=== PATIENT | female | born 1935 | race Two or more races ===

== ENCOUNTER 2017-06-08 15:32 | Inpatient (IN) | payer MEDICARE, OTHER ==
[~2017-06-08] VITALS: Ht 152.4 cm; Wt 54.8 kg
[2017-06-08 16:13] LABS: CONDITION Y
[2017-06-08 16:16] LABS: Basophils # (auto) 0 uL; Basophils % (auto) 0.5 % (0.0-2.0); Eosinophils # (auto) 0.2 uL; Eosinophils % (auto) 1.6 % (0.0-7.0); Hematocrit 40.1 % (36.0-46.0); Hemoglobin 13.4 g/dL (12.2-16.2); Lymphocytes # (auto) 3.6 uL; Lymphocytes % (auto) 33.9 % (10.0-50.0); Mean Corpuscular Hemoglobin 29.4 pg (28.0-32.0); Mean Corpuscular Hgb Conc. 33.5 g/dL (32.0-36.0); Mean Corpuscular Volume 87.9 fL (80.0-100.0); Monocytes # (auto) 1.1 uL; Neutrophils # (auto) 5.8 uL; Platelet Count (auto) 191 10^3/uL (140-450); Red Cell Distribution Width 14.6 % (11.6-16.0); White Blood Cell 10.7 10^3/uL (4.4-10.8)
[2017-06-08 16:37] LABS: Albumin 3.1 g/dL (3.4-5.0); BUN/Creatinine Ratio 12.6; Calcium 8.8 mg/dL (8.5-10.1); Potassium 3.8 mmol/L (3.5-5.1)
[2017-06-08 16:39] LABS: Bilirubin, Total 0.4 mg/dL (0.2-1.0); Total Protein 7.1 g/dL (6.4-8.2)
[2017-06-08] MEDS ORDERED: InsuLIN REG 1unit/0.01ml Soln (100units/ml) SC ONE (18:00)
[2017-06-08] MEDS ORDERED: cloNIDine HCL 0.1 MG TAB PO ONE (18:00)
[2017-06-08] MEDS ORDERED: LACTULOSE 20Gm/30ML SOLN PO PRN (18:15)
[2017-06-08] MEDS ORDERED: ACETAMINOPHEN 500 MG TAB PO PRN (18:15)
[2017-06-08] MEDS ORDERED: NITROGLYCERIN 0.4 MG SL TAB SL PRN (18:15)
[2017-06-08] MEDS ORDERED: LORazepam 0.5 MG TAB PO PRN (18:15)
[2017-06-08] MEDS ORDERED: MORPHINE SULF INJ 2 MG/ML SYRINGE 1ML IV PRN (18:15)
[2017-06-08] MEDS ORDERED: PROMETHAZINE HCL 25 MG/ML 1ML IV PRN (18:15)
[2017-06-08] MEDS ORDERED: MORPHINE SULFATE 4 MG/ML SYRG IV PRN (18:15)
[2017-06-08] MEDS ORDERED: DEXTROSE (50%) 50ML SYRG IV PRN (18:15)
[2017-06-08] MEDS ORDERED: TEMAZEPAM 15 MG CAP PO PRN (18:15)
[2017-06-08] MEDS: SODIUM CHLORIDE 0.9% 1,000 ML IV SCH (18:28)
[2017-06-08] MEDS ORDERED: ASPirin 81 mg TAB PO ONE (18:30)
[2017-06-08 19:02] LABS: INR 0.98 (0.9-1.15); Partial Thromboplastin Time 26.8 sec (22.64-33.71); Prothrombin Time 10.7 sec (9.37-12.3)
[2017-06-08] MEDS ORDERED: LABETALOL HCL 5 MG/ML ML 20ML VIAL IV ONE (19:45)
[2017-06-08] MEDS: InsuLIN REG 1unit/0.01ml Soln (100units/ml) SC SCH (20:01)
[2017-06-08] MEDS: ENOXAPARIN SOD 40 MG/0.4 ML SYRINGE SC SCH (20:02)
[2017-06-08] MEDS: ACCU-CHEK COMFORT CURVE STRIP VI SCH (20:02)
[2017-06-08 21:40] VITALS: BP 127/68
[2017-06-08 22:00] VITALS: BP 127/68
[2017-06-08] MEDS ORDERED: ATORVASTATIN 20 MG TAB PO SCH (22:00)
[2017-06-09] MEDS: ACCU-CHEK COMFORT CURVE STRIP VI SCH ×6 (00:39→21:23)
[2017-06-09] MEDS: InsuLIN REG 1unit/0.01ml Soln (100units/ml) SC SCH ×6 (00:43→21:23)
[2017-06-09 05:00] VITALS: BP 146/65
[2017-06-09] MEDS: SODIUM CHLORIDE 0.9% 1,000 ML IV SCH ×2 (05:57→20:00)
[2017-06-09 08:00] VITALS: BP 152/72
[2017-06-09 09:00] VITALS: BP 152/72
[2017-06-09] MEDS: HYDROcodone-ACET 5/325MG TAB PO PRN ×2 (09:10→15:51)
[2017-06-09] MEDS: ASPirin 81 mg TAB PO SCH (09:11)
[2017-06-09 10:00] LABS: Urine Bilirubin Negative (Negative); Urine Blood Negative /uL (Negative); Urine Color Yellow (Yellow); Urine Ketone Negative (Negative); Urine Mucus FEW (None Seen); Urine Nitrite Negative (Negative); Urine RBC 2 /hpf (0 - 4); Urine Squamous Epithelial Cell FEW /hpf (<5); Urine Urobilinogen Normal (Negative); Urine pH 5.5 (5.0-8.0)
[2017-06-09 10:01] LABS: Urine Glucose 4+ mg/dL (Normal)
[2017-06-09 12:00] VITALS: BP 179/88
[2017-06-09] MEDS: LABETALOL HCL 5 MG/ML ML 20ML VIAL IV PRN ×3 (12:21→18:06)
[2017-06-09] MEDS ORDERED: HYDROcodone-ACET 5/325MG TAB PO PRN (14:45)
[2017-06-09] MEDS ORDERED: MORPHINE SULFATE 4 MG/ML SYRG IV PRN (14:45)
[2017-06-09] MEDS ORDERED: DEXTROSE (50%) 50ML SYRG IV PRN (14:45)
[2017-06-09] MEDS ORDERED: CILOSTAZOL 100 MG TAB PO ONE (15:00)
[2017-06-09] MEDS ORDERED: AMLO10TA2 PO (17:04)
[2017-06-09] MEDS ORDERED: METF-372 PO (17:04)
[2017-06-09] MEDS ORDERED: RANO500T2 PO (17:04)
[2017-06-09] MEDS ORDERED: ATOR10TA52 PO (17:04)
[2017-06-09] MEDS ORDERED: CLOP75TA28 PO (17:04)
[2017-06-09] MEDS ORDERED: ISOS30TA4 PO (17:04)
[2017-06-09] MEDS ORDERED: METO25TA5 PO (17:04)
[2017-06-09] MEDS ORDERED: ASPI-231 PO (17:04)
[2017-06-09 17:06] VITALS: BP 176/74
[2017-06-09] MEDS: glipiZIDE 5 MG TAB PO SCH (17:21)
[2017-06-09] MEDS: ENOXAPARIN SOD 40 MG/0.4 ML SYRINGE SC SCH (20:00)
[2017-06-09] MEDS: cloNIDine HCL 0.1 MG TAB PO SCH (20:50)
[2017-06-09] MEDS: ATORVASTATIN 20 MG TAB PO SCH (20:51)
[2017-06-09] MEDS: CILOSTAZOL 100 MG TAB PO SCH (20:51)
[2017-06-09 22:05] VITALS: BP_SYST 125; BP_SYST 128; BP_DIAS 61; BP_DIAS 80
[2017-06-10 05:30] VITALS: BP 113/54
[2017-06-10] MEDS: ACCU-CHEK COMFORT CURVE STRIP VI SCH ×4 (05:58→21:34)
[2017-06-10] MEDS: glipiZIDE 5 MG TAB PO SCH ×2 (05:58→17:44)
[2017-06-10] MEDS: InsuLIN REG 1unit/0.01ml Soln (100units/ml) SC SCH ×4 (05:58→21:34)
[2017-06-10] MEDS: SODIUM CHLORIDE 0.9% 1,000 ML IV SCH (07:24)
[2017-06-10 07:35] LABS: Potassium 3.7 mmol/L (3.5-5.1)
[2017-06-10 07:50] LABS: BUN/Creatinine Ratio 21.2; Calcium 7.8 mg/dL (8.5-10.1)
[2017-06-10 08:00] VITALS: BP 110/52
[2017-06-10 09:07] VITALS: BP 110/52
[2017-06-10] MEDS: CILOSTAZOL 100 MG TAB PO SCH ×2 (09:55→21:34)
[2017-06-10] MEDS: ASPirin 81 mg TAB PO SCH (09:55)
[2017-06-10] MEDS: cloNIDine HCL 0.1 MG TAB PO SCH (09:56)
[2017-06-10] MEDS ORDERED: METOPROLOL TARTRATE 25 MG TAB PO ONE (10:45)
[2017-06-10] MEDS ORDERED: amLODIPine BESYLATE 5 MG TAB PO ONE (10:45)
[2017-06-10] MEDS ORDERED: CLOPIDOGREL BISULFATE 75 MG TAB PO ONE (10:45)
[2017-06-10] MEDS ORDERED: ISOSORBIDE MONONITRATE 60 MG TAB PO ONE (10:45)
[2017-06-10 13:00] VITALS: BP 137/70
[2017-06-10 17:26] VITALS: BP 117/53
[2017-06-10] MEDS: METOPROLOL TARTRATE 25 MG TAB PO SCH (21:34)
[2017-06-10] MEDS: ENOXAPARIN SOD 40 MG/0.4 ML SYRINGE SC SCH (21:34)
[2017-06-10] MEDS: ATORVASTATIN 20 MG TAB PO SCH (21:34)
[2017-06-10 22:00] VITALS: BP 125/51
[2017-06-11 05:00] VITALS: BP 128/65
[2017-06-11] MEDS: InsuLIN REG 1unit/0.01ml Soln (100units/ml) SC SCH ×4 (05:43→22:00)
[2017-06-11] MEDS: ACCU-CHEK COMFORT CURVE STRIP VI SCH ×4 (05:44→22:00)
[2017-06-11] MEDS: glipiZIDE 5 MG TAB PO SCH ×2 (06:18→18:46)
[2017-06-11] MEDS: CILOSTAZOL 100 MG TAB PO SCH (08:39)
[2017-06-11] MEDS: METOPROLOL TARTRATE 25 MG TAB PO SCH ×2 (08:40→21:59)
[2017-06-11] MEDS: ASPirin 81 mg TAB PO SCH (08:40)
[2017-06-11] MEDS: CLOPIDOGREL BISULFATE 75 MG TAB PO SCH (08:40)
[2017-06-11] MEDS: amLODIPine BESYLATE 5 MG TAB PO SCH (08:41)
[2017-06-11] MEDS: ISOSORBIDE MONONITRATE 60 MG TAB PO SCH (08:41)
[2017-06-11 09:00] VITALS: BP 143/74
[2017-06-11 13:00] VITALS: BP 143/68
[2017-06-11 17:00] VITALS: BP 123/60
[2017-06-11] MEDS: ENOXAPARIN SOD 40 MG/0.4 ML SYRINGE SC SCH (20:00)
[2017-06-11 21:59] VITALS: BP 155/76
[2017-06-11] MEDS: ATORVASTATIN 20 MG TAB PO SCH (21:59)
[2017-06-11] MEDS: SODIUM CHLORIDE 0.9% 1,000 ML IV SCH (22:56)
[2017-06-12 05:00] VITALS: BP 159/80
[2017-06-12] MEDS: LABETALOL HCL 5 MG/ML ML 20ML VIAL IV PRN (05:43)
[2017-06-12] MEDS: ACCU-CHEK COMFORT CURVE STRIP VI SCH ×4 (06:08→22:05)
[2017-06-12] MEDS: InsuLIN REG 1unit/0.01ml Soln (100units/ml) SC SCH ×4 (06:08→22:06)
[2017-06-12] MEDS: glipiZIDE 5 MG TAB PO SCH ×2 (06:08→18:00)
[2017-06-12 07:24] LABS: BUN/Creatinine Ratio 18.3; Calcium 8.1 mg/dL (8.5-10.1); Potassium 3.4 mmol/L (3.5-5.1)
[2017-06-12 09:00] VITALS: BP 131/61
[2017-06-12] MEDS: SODIUM CHLORIDE 0.9% 1,000 ML IV SCH ×2 (09:00→20:06)
[2017-06-12] MEDS ORDERED: LIDOCAINE 2%HCL (LOCAL ANESTH.) INJ 20ML MDV ONE (09:35)
[2017-06-12] MEDS ORDERED: ANGIOMAX 250 MG VIAL IV ONE (09:47)
[2017-06-12] MEDS ORDERED: MIDAZOLAM HCL 1MG/1ML-2 ML VIAL ONE (09:48)
[2017-06-12] MEDS ORDERED: fentaNYL CITRATE 100 MCG/2 ML VL ONE (09:48)
[2017-06-12] MEDS ORDERED: SODIUM CHL 0.9% 50 ML ONE (09:48)
[2017-06-12] MEDS: CLOPIDOGREL BISULFATE 75 MG TAB PO SCH (10:00)
[2017-06-12] MEDS: METOPROLOL TARTRATE 25 MG TAB PO SCH ×2 (10:00→22:00)
[2017-06-12] MEDS: ASPirin 81 mg TAB PO SCH (10:00)
[2017-06-12] MEDS ORDERED: CLOPIDOGREL 300 MG TAB ONE (10:57)
[2017-06-12] MEDS ORDERED: CLOPIDOGREL 300 MG TAB PO ONE (11:15)
[2017-06-12 13:00] VITALS: BP 140/54
[2017-06-12] MEDS: amLODIPine BESYLATE 5 MG TAB PO SCH (14:46)
[2017-06-12] MEDS: ISOSORBIDE MONONITRATE 60 MG TAB PO SCH (14:48)
[2017-06-12 17:00] VITALS: BP 99/48
[2017-06-12 20:00] VITALS: BP 104/51
[2017-06-12] MEDS: ENOXAPARIN SOD 40 MG/0.4 ML SYRINGE SC SCH (20:06)
[2017-06-12 21:32] VITALS: BP 104/51
[2017-06-12] MEDS: ATORVASTATIN 20 MG TAB PO SCH (22:06)
[2017-06-13] VITALS (7 sets, daily range): BP systolic 104–138; BP diastolic 50–65
[2017-06-13] MEDS: SODIUM CHLORIDE 0.9% 1,000 ML IV SCH (03:25)
[2017-06-13] MEDS: ACCU-CHEK COMFORT CURVE STRIP VI SCH ×4 (06:32→21:44)
[2017-06-13] MEDS: glipiZIDE 5 MG TAB PO SCH ×2 (06:32→18:22)
[2017-06-13] MEDS: InsuLIN REG 1unit/0.01ml Soln (100units/ml) SC SCH ×4 (06:32→21:45)
[2017-06-13] MEDS: amLODIPine BESYLATE 5 MG TAB PO SCH (10:00)
[2017-06-13] MEDS: ISOSORBIDE MONONITRATE 60 MG TAB PO SCH (10:00)
[2017-06-13] MEDS: CLOPIDOGREL BISULFATE 75 MG TAB PO SCH (10:02)
[2017-06-13] MEDS: METOPROLOL TARTRATE 25 MG TAB PO SCH ×2 (10:03→21:44)
[2017-06-13] MEDS: ASPirin 81 mg TAB PO SCH (10:03)
[2017-06-13] MEDS ORDERED: POTASSIUM CHL 20 Meq TABLET PO ONE (11:00)
[2017-06-13] MEDS: ENOXAPARIN SOD 40 MG/0.4 ML SYRINGE SC SCH (21:26)
[2017-06-13] MEDS: ATORVASTATIN 20 MG TAB PO SCH (21:44)
[2017-06-14] VITALS (16 sets, daily range): BP systolic 118–152; BP diastolic 5–72
[2017-06-14 05:49] LABS: Basophils # (auto) 0.1 uL; Basophils % (auto) 0.4 % (0.0-2.0); CONDITION Y; DEFINITIVE SEE PRINTOUT; Eosinophils # (auto) 0.2 uL; Eosinophils % (auto) 1.4 % (0.0-7.0); Hematocrit 22.3 % (36.0-46.0); Hemoglobin 7.5 g/dL (12.2-16.2); Lymphocytes # (auto) 4.1 uL; Lymphocytes % (auto) 29.3 % (10.0-50.0); Mean Corpuscular Hemoglobin 30.1 pg (28.0-32.0); Mean Corpuscular Hgb Conc. 33.5 g/dL (32.0-36.0); Mean Corpuscular Volume 89.6 fL (80.0-100.0); Mean Platelet Volume 9.6 fL (7.4-10.4); Monocytes % (auto) 14.7 % (0.0-12.0); Neutrophils # (auto) 7.6 uL; Neutrophils % (auto) 54.2 % (37.0-80.0); Platelet Count (auto) 170 10^3/uL (140-450); Red Cell Distribution Width 14.5 % (11.6-16.0); White Blood Cell 13.9 10^3/uL (4.4-10.8)
[2017-06-14 06:00] LABS: Calcium 7.2 mg/dL (8.5-10.1); Potassium 3.8 mmol/L (3.5-5.1)
[2017-06-14 06:03] LABS: BUN/Creatinine Ratio 26.2
[2017-06-14] MEDS: InsuLIN REG 1unit/0.01ml Soln (100units/ml) SC SCH ×4 (06:41→21:41)
[2017-06-14] MEDS: ACCU-CHEK COMFORT CURVE STRIP VI SCH ×4 (06:41→21:40)
[2017-06-14] MEDS: glipiZIDE 5 MG TAB PO SCH ×2 (06:41→18:34)
[2017-06-14 09:12] LABS: Hematocrit 22.5 % (36.0-46.0); Hemoglobin 7.6 g/dL (12.2-16.2)
[2017-06-14] MEDS: ASPirin 81 mg TAB PO SCH (10:31)
[2017-06-14] MEDS: ISOSORBIDE MONONITRATE 60 MG TAB PO SCH (10:31)
[2017-06-14] MEDS: METOPROLOL TARTRATE 25 MG TAB PO SCH ×2 (10:32→21:37)
[2017-06-14] MEDS: CLOPIDOGREL BISULFATE 75 MG TAB PO SCH (10:32)
[2017-06-14] MEDS: amLODIPine BESYLATE 5 MG TAB PO SCH (10:32)
[2017-06-14] MEDS: ATORVASTATIN 20 MG TAB PO SCH (21:37)
[2017-06-15 05:08] VITALS: BP 149/74
[2017-06-15 05:58] LABS: Basophils # (auto) 0 uL; Basophils % (auto) 0.4 % (0.0-2.0); CONDITION Y; Eosinophils # (auto) 0.2 uL; Eosinophils % (auto) 1.7 % (0.0-7.0); Hemoglobin 10.6 g/dL (12.2-16.2); Lymphocytes # (auto) 2.6 uL; Lymphocytes % (auto) 26.4 % (10.0-50.0); Mean Corpuscular Hemoglobin 30.2 pg (28.0-32.0); Mean Corpuscular Hgb Conc. 34.3 g/dL (32.0-36.0); Mean Corpuscular Volume 88.3 fL (80.0-100.0); Monocytes # (auto) 1.6 uL; Monocytes % (auto) 15.9 % (0.0-12.0); Neutrophils # (auto) 5.6 uL; Neutrophils % (auto) 55.6 % (37.0-80.0); Platelet Count (auto) 181 10^3/uL (140-450); Red Cell Distribution Width 14.7 % (11.6-16.0)
[2017-06-15] MEDS: InsuLIN REG 1unit/0.01ml Soln (100units/ml) SC SCH ×2 (06:32→11:30)
[2017-06-15] MEDS: ACCU-CHEK COMFORT CURVE STRIP VI SCH ×2 (06:32→11:30)
[2017-06-15] MEDS: glipiZIDE 5 MG TAB PO SCH (06:33)
[2017-06-15 09:00] VITALS: BP 145/80
[2017-06-15] MEDS ORDERED: GLIP-115 PO (09:44)
[2017-06-15] MEDS: ISOSORBIDE MONONITRATE 60 MG TAB PO SCH (10:00)
[2017-06-15] MEDS: METOPROLOL TARTRATE 25 MG TAB PO SCH (10:00)
[2017-06-15] MEDS: ASPirin 81 mg TAB PO SCH (10:00)
[2017-06-15] MEDS: CLOPIDOGREL BISULFATE 75 MG TAB PO SCH (10:00)
[2017-06-15] MEDS: amLODIPine BESYLATE 5 MG TAB PO SCH (10:00)
[2017-06-15 10:23] VITALS: BP 145/80
== END 2017-06-15 14:20 | disposition home health service (06) | DRG 271 ==
LOC: ER 15:37 → TELE 15:38 → TELE-EAST 21:20 → EAST 06-14 10:26
PROVIDERS: ADMIT Internal Medicine; ATTEND Internal Medicine
PROC: B41F1ZZ Fluoroscopy of Right Lower Extremity Arteries using Low Osmolar Contrast (ICD-10-PCS; principal; 2017-06-12)
PROC: B41G1ZZ Fluoroscopy of Left Lower Extremity Arteries using Low Osmolar Contrast (ICD-10-PCS; 2017-06-12)
PROC: 04CK3ZZ Extirpation of Matter from Right Femoral Artery, Percutaneous Approach (ICD-10-PCS; 2017-06-12)
PROC: 047K3Z1 Dilation of Right Femoral Artery using Drug-Coated Balloon, Percutaneous Approach (ICD-10-PCS; 2017-06-12)
PROC: 047M3Z1 Dilation of Right Popliteal Artery using Drug-Coated Balloon, Percutaneous Approach (ICD-10-PCS; 2017-06-12)
PROC: 047Q3ZZ Dilation of Left Anterior Tibial Artery, Percutaneous Approach (ICD-10-PCS; 2017-06-12)
PROC: 04CM3ZZ Extirpation of Matter from Right Popliteal Artery, Percutaneous Approach (ICD-10-PCS; 2017-06-12)
PROC: 04CP3ZZ Extirpation of Matter from Right Anterior Tibial Artery, Percutaneous Approach (ICD-10-PCS; 2017-06-12)
DX: E11.51 Type 2 diabetes mellitus with diabetic peripheral angiopathy without gangrene (principal); E11.22 Type 2 diabetes mellitus with diabetic chronic kidney disease; F03.90 Unspecified dementia, unspecified severity, without behavioral disturbance, psychotic disturbance, mood disturbance, and anxiety; E11.65 Type 2 diabetes mellitus with hyperglycemia; I12.9 Hypertensive chronic kidney disease with stage 1 through stage 4 chronic kidney disease, or unspecified chronic kidney disease; N18.3 Chronic kidney disease, stage 3 (moderate); W01.0XXA Fall on same level from slipping, tripping and stumbling without subsequent striking against object, initial encounter; I69.351 Hemiplegia and hemiparesis following cerebral infarction affecting right dominant side; S09.90XA Unspecified injury of head, initial encounter; D64.9 Anemia, unspecified; I67.2 Cerebral atherosclerosis; I16.0 Hypertensive urgency; I70.211 Atherosclerosis of native arteries of extremities with intermittent claudication, right leg; Y93.89 Activity, other specified; Y92.89 Other specified places as the place of occurrence of the external cause; Z82.49 Family history of ischemic heart disease and other diseases of the circulatory system
CPT/HCPCS: 34201; 34203; 36415; 37224; 37228; 70450; 71010; 80048; 80053; 80307; 81001; 82550; 82607; 82962; 83036; 84443; 85014; 85018; 85025; 85610; 85652; 85730; 86850; 86900; 86901; 86920; 96372; 96374; 97116; 97530; 99152; J1815; J2250

== ENCOUNTER 2020-03-04 00:22 | Inpatient (IN) | payer OTHER, MEDICAID ==
[~2020-03-04] VITALS: Ht 152.4 cm; Wt 40.8 kg
[~2020-03-04 00:22] MED LIST: AMLO10TA13 PO; ASPI-231 PO; ATOR10TA52 PO; BENA20TA14 PO; CARV6.2551 PO; CLOP75TA28 PO; GLIP5TAB12 PO; ISOS30TA4 PO; METO25TA5 PO; RANO500T2 PO
[2020-03-04] MEDS ORDERED: cloNIDine HCL 0.1 MG TAB PO ONE (00:30)
[2020-03-04] MEDS ORDERED: MORPHINE SULFATE 4 MG/ML SYR/VIAL IV ONE (00:30)
[2020-03-04] MEDS ORDERED: ONDANSETRON HCL 4 MG/2 ML VIAL IV ONE ×2 (00:30→01:45)
[2020-03-04] MEDS ORDERED: NITROGLYCERIN 0.4 MG SL TAB SL ONE ×3 (00:48→10:00)
[2020-03-04 00:50] LABS: Basophils # (auto) 0.1 10 ^3/uL (0-0.2); Basophils % (auto) 0.9 % (0.0-2.0); Eosinophils # (auto) 0.4 10 ^3/uL (0-0.8); Eosinophils % (auto) 3.7 % (0.0-7.0); Hematocrit 33.5 % (36.0-46.0); Hemoglobin 10.7 g/dL (12.2-16.2); Lymphocytes # (auto) 3.6 10 ^3/uL (0.4-5.4); Lymphocytes % (auto) 37.1 % (10.0-50.0); Mean Corpuscular Hemoglobin 28.2 pg (28.0-32.0); Mean Corpuscular Hgb Conc. 32.1 g/dL (32.0-36.0); Mean Corpuscular Volume 87.9 fL (80.0-100.0); Monocytes # (auto) 0.9 10 ^3/uL (0-1.3); Monocytes % (auto) 9.7 % (0.0-12.0); Neutrophils # (auto) 4.7 10 ^3/uL (1.6-8.6); Neutrophils % (auto) 48.6 % (37.0-80.0); Nucleated Red Blood Cells % 0.2 %; Platelet Count (auto) 199 10^3/uL (140-450); Red Blood Cells 3.81 10^6/uL (4.0-5.20); Red Cell Distribution Width 15.1 % (11.8-14.3); White Blood Cell 9.7 10^3/uL (4.4-10.8)
[2020-03-04 01:09] LABS: Albumin 2.8 g/dL (3.4-5.0); Calcium 8.2 mg/dL (8.5-10.1); Magnesium 2.1 mg/dL (1.6-2.6); Potassium 3.6 mmol/L (3.5-5.1)
[2020-03-04 01:11] LABS: INR 1.13 (0.9-1.15); Partial Thromboplastin Time 27.9 sec (23.64-32.05)
[2020-03-04 01:14] LABS: Bilirubin, Total 0.6 mg/dL (0.2-1.0); Total Protein 7.1 g/dL (6.4-8.2)
[2020-03-04] MEDS ORDERED: ACETAMINOPHEN 325 MG TAB PO PRN (04:45)
[2020-03-04] MEDS ORDERED: MORPHINE SULF INJ 2 MG/ML SYRINGE 1ML IV PRN (04:45)
[2020-03-04] MEDS ORDERED: ONDANSETRON HCL 4 MG/2 ML VIAL IV PRN (04:45)
[2020-03-04] MEDS ORDERED: DEXTROSE (50%) 50ML SYRG IV PRN (04:45)
[2020-03-04] MEDS ORDERED: NITROGLYCERIN 0.4 MG SL TAB SL PRN (04:45)
[2020-03-04] MEDS: SODIUM CHLORIDE 0.9% 1,000 ML IV SCH ×2 (05:32→18:03)
[2020-03-04 07:53] VITALS: BP 139/72
[2020-03-04] MEDS ORDERED: CARVEDILOL 3.125 MG TAB PO SCH (08:00)
[2020-03-04] MEDS: ACCU-CHEK COMFORT CURVE STRIP VI SCH ×3 (08:00→20:15)
[2020-03-04 09:17] VITALS: BP 139/72
[2020-03-04] MEDS: ATORVASTATIN 20 MG TAB PO SCH (09:20)
[2020-03-04] MEDS: DOCUSATE SOD 100 MG CAP PO SCH (09:21)
[2020-03-04] MEDS: CLOPIDOGREL BISULFATE 75 MG TAB PO SCH (09:21)
[2020-03-04] MEDS: amLODIPine BESYLATE 5 MG TAB PO SCH (09:21)
[2020-03-04] MEDS: ISOSORBIDE MONONITRATE ER 60 MG TAB PO SCH (09:22)
[2020-03-04] MEDS: ASPirin-EC 81 mg tab PO SCH (09:22)
[2020-03-04] MEDS: InsuLIN REG 1unit/0.01ml Soln (100units/ml) SC SCH ×3 (09:23→20:24)
[2020-03-04] MEDS: FUROSEMIDE 100 MG/10ML VIAL IV SCH (09:29)
[2020-03-04] MEDS ORDERED: hydrALAZINE HCL 20 MG/ML VL IV PRN (09:45)
[2020-03-04] MEDS ORDERED: BENAZEPRIL HCL 10 MG TAB PO SCH (10:00)
[2020-03-04] MEDS ORDERED: ASPirin 81 mg TAB PO SCH (10:00)
[2020-03-04] MEDS ORDERED: CLOPIDOGREL BISULFATE 75 MG TAB PO SCH (10:00)
[2020-03-04 12:50] VITALS: BP 132/66
[2020-03-04 16:32] VITALS: BP 90/51
[2020-03-04] MEDS: Glucerna Carbsteady SHAKE Vanilla 8oz PO SCH (18:00)
[2020-03-04] MEDS: METOPROLOL TARTRATE 25 MG TAB PO SCH (21:21)
[2020-03-04 22:00] VITALS: BP 117/51
[2020-03-04] MEDS ORDERED: ATORVASTATIN 20 MG TAB PO SCH (22:00)
[2020-03-05] MEDS: ACCU-CHEK COMFORT CURVE STRIP VI SCH ×6 (03:36→22:01)
[2020-03-05] MEDS: InsuLIN REG 1unit/0.01ml Soln (100units/ml) SC SCH ×6 (03:36→22:04)
[2020-03-05 05:00] VITALS: BP 116/56
[2020-03-05 05:18] LABS: Basophils # (auto) 0.1 10 ^3/uL (0-0.2); Eosinophils # (auto) 0.5 10 ^3/uL (0-0.8); Eosinophils % (auto) 5.8 % (0.0-7.0); Hematocrit 27.2 % (36.0-46.0); Hemoglobin 8.9 g/dL (12.2-16.2); Lymphocytes # (auto) 2.8 10 ^3/uL (0.4-5.4); Lymphocytes % (auto) 34.2 % (10.0-50.0); Mean Corpuscular Hemoglobin 28.7 pg (28.0-32.0); Mean Corpuscular Hgb Conc. 32.7 g/dL (32.0-36.0); Mean Corpuscular Volume 87.7 fL (80.0-100.0); Monocytes # (auto) 0.9 10 ^3/uL (0-1.3); Monocytes % (auto) 11.3 % (0.0-12.0); Neutrophils # (auto) 3.9 10 ^3/uL (1.6-8.6); Neutrophils % (auto) 47.7 % (37.0-80.0); Platelet Count (auto) 155 10^3/uL (140-450); White Blood Cell 8.1 10^3/uL (4.4-10.8)
[2020-03-05 05:38] LABS: Potassium 4.3 mmol/L (3.5-5.1)
[2020-03-05] MEDS: FUROSEMIDE 100 MG/10ML VIAL IV SCH ×2 (05:55→18:13)
[2020-03-05] MEDS: SODIUM CHLORIDE 0.9% 1,000 ML IV SCH ×2 (07:23→22:01)
[2020-03-05] MEDS: Glucerna Carbsteady SHAKE Vanilla 8oz PO SCH ×3 (08:00→18:12)
[2020-03-05 09:00] VITALS: BP 121/58
[2020-03-05] MEDS: METOPROLOL TARTRATE 25 MG TAB PO SCH ×2 (09:45→21:52)
[2020-03-05] MEDS: ASPirin-EC 81 mg tab PO SCH (09:46)
[2020-03-05] MEDS: amLODIPine BESYLATE 5 MG TAB PO SCH (09:46)
[2020-03-05] MEDS: DOCUSATE SOD 100 MG CAP PO SCH (09:46)
[2020-03-05] MEDS: ISOSORBIDE MONONITRATE ER 60 MG TAB PO SCH (09:46)
[2020-03-05] MEDS: ATORVASTATIN 20 MG TAB PO SCH (09:47)
[2020-03-05] MEDS: CLOPIDOGREL BISULFATE 75 MG TAB PO SCH (09:47)
[2020-03-05] MEDS ORDERED: DEXTROSE (50%) 50ML SYRG IV PRN (16:00)
[2020-03-05 17:00] VITALS: BP 115/61
[2020-03-05 22:00] VITALS: BP 107/46
[2020-03-06 04:53] VITALS: BP 130/61
[2020-03-06 05:48] LABS: Basophils # (auto) 0.1 10 ^3/uL (0-0.2); Basophils % (auto) 0.7 % (0.0-2.0); Eosinophils # (auto) 0.4 10 ^3/uL (0-0.8); Eosinophils % (auto) 4.4 % (0.0-7.0); Hematocrit 28.7 % (36.0-46.0); Hemoglobin 9.4 g/dL (12.2-16.2); Lymphocytes # (auto) 2.5 10 ^3/uL (0.4-5.4); Lymphocytes % (auto) 28.3 % (10.0-50.0); Mean Corpuscular Hgb Conc. 32.9 g/dL (32.0-36.0); Mean Corpuscular Volume 88.1 fL (80.0-100.0); Monocytes # (auto) 1.4 10 ^3/uL (0-1.3); Monocytes % (auto) 15.1 % (0.0-12.0); Neutrophils # (auto) 4.6 10 ^3/uL (1.6-8.6); Neutrophils % (auto) 51.5 % (37.0-80.0); Platelet Count (auto) 162 10^3/uL (140-450); Red Blood Cells 3.26 10^6/uL (4.0-5.20); Red Cell Distribution Width 15.1 % (11.8-14.3); White Blood Cell 8.9 10^3/uL (4.4-10.8)
[2020-03-06 06:04] LABS: Potassium 3.8 mmol/L (3.5-5.1)
[2020-03-06 06:08] LABS: BUN/Creatinine Ratio 21.4; Calcium 7.6 mg/dL (8.5-10.1)
[2020-03-06] MEDS: ACCU-CHEK COMFORT CURVE STRIP VI SCH ×4 (06:16→22:19)
[2020-03-06] MEDS: FUROSEMIDE 100 MG/10ML VIAL IV SCH ×2 (06:16→17:35)
[2020-03-06] MEDS: InsuLIN REG 1unit/0.01ml Soln (100units/ml) SC SCH ×4 (06:16→22:19)
[2020-03-06 08:00] VITALS: BP 137/65
[2020-03-06] MEDS ORDERED: ADENOSINE 35 MG in GIVE UN-DILUTED 0 ML IV STA (08:38)
[2020-03-06 09:48] VITALS: BP 159/76
[2020-03-06] MEDS: SODIUM CHLORIDE 0.9% 1,000 ML IV SCH ×2 (10:03→17:41)
[2020-03-06] MEDS: DOCUSATE SOD 100 MG CAP PO SCH (11:12)
[2020-03-06] MEDS: ASPirin-EC 81 mg tab PO SCH (11:12)
[2020-03-06] MEDS: ISOSORBIDE MONONITRATE ER 60 MG TAB PO SCH (11:13)
[2020-03-06] MEDS: ATORVASTATIN 20 MG TAB PO SCH (11:13)
[2020-03-06] MEDS: amLODIPine BESYLATE 5 MG TAB PO SCH (11:14)
[2020-03-06] MEDS: METOPROLOL TARTRATE 25 MG TAB PO SCH ×2 (11:14→22:18)
[2020-03-06] MEDS: CLOPIDOGREL BISULFATE 75 MG TAB PO SCH (11:15)
[2020-03-06] MEDS: Glucerna Carbsteady SHAKE Vanilla 8oz PO SCH ×3 (11:17→18:15)
[2020-03-06 12:00] VITALS: BP 107/66
[2020-03-06 16:59] VITALS: BP 101/57
[2020-03-06 22:00] VITALS: BP 125/54
[2020-03-07 05:00] VITALS: BP 122/67
[2020-03-07] MEDS: FUROSEMIDE 100 MG/10ML VIAL IV SCH ×2 (06:35→18:03)
[2020-03-07] MEDS: ACCU-CHEK COMFORT CURVE STRIP VI SCH ×4 (06:36→23:05)
[2020-03-07] MEDS: InsuLIN REG 1unit/0.01ml Soln (100units/ml) SC SCH ×4 (06:36→23:04)
[2020-03-07 08:08] LABS: Basophils # (auto) 0.1 10 ^3/uL (0-0.2); Basophils % (auto) 0.8 % (0.0-2.0); Eosinophils # (auto) 0.3 10 ^3/uL (0-0.8); Eosinophils % (auto) 3.4 % (0.0-7.0); Hematocrit 35.4 % (36.0-46.0); Hemoglobin 11.5 g/dL (12.2-16.2); Lymphocytes # (auto) 2.9 10 ^3/uL (0.4-5.4); Lymphocytes % (auto) 30.5 % (10.0-50.0); Mean Corpuscular Hemoglobin 28.8 pg (28.0-32.0); Mean Corpuscular Hgb Conc. 32.5 g/dL (32.0-36.0); Mean Corpuscular Volume 88.7 fL (80.0-100.0); Monocytes % (auto) 10.8 % (0.0-12.0); Neutrophils # (auto) 5.2 10 ^3/uL (1.6-8.6); Neutrophils % (auto) 54.5 % (37.0-80.0); Platelet Count (auto) 182 10^3/uL (140-450); Red Cell Distribution Width 15.2 % (11.8-14.3); White Blood Cell 9.6 10^3/uL (4.4-10.8)
[2020-03-07 09:00] VITALS: BP 142/52
[2020-03-07] MEDS: METOPROLOL TARTRATE 25 MG TAB PO SCH ×2 (09:32→23:03)
[2020-03-07] MEDS: amLODIPine BESYLATE 5 MG TAB PO SCH (09:32)
[2020-03-07] MEDS: ASPirin-EC 81 mg tab PO SCH (09:32)
[2020-03-07] MEDS: DOCUSATE SOD 100 MG CAP PO SCH (09:33)
[2020-03-07] MEDS: CLOPIDOGREL BISULFATE 75 MG TAB PO SCH (09:33)
[2020-03-07] MEDS: ISOSORBIDE MONONITRATE ER 60 MG TAB PO SCH (09:34)
[2020-03-07] MEDS: Glucerna Carbsteady SHAKE Vanilla 8oz PO SCH ×3 (09:35→18:03)
[2020-03-07] MEDS: SODIUM CHLORIDE 0.9% 1,000 ML IV SCH (12:43)
[2020-03-07 13:00] VITALS: BP 126/69
[2020-03-07 16:49] VITALS: BP 110/53
[2020-03-07 22:00] VITALS: BP 135/70
[2020-03-07] MEDS: ATORVASTATIN 20 MG TAB PO SCH (23:02)
[2020-03-07] MEDS: SODIUM CHLORIDE 0.9% 500 ML IV SCH (23:15)
[2020-03-08 05:00] VITALS: BP 112/58
[2020-03-08 05:33] LABS: Basophils # (auto) 0.1 10 ^3/uL (0-0.2); Basophils % (auto) 0.9 % (0.0-2.0); Eosinophils # (auto) 0.4 10 ^3/uL (0-0.8); Hematocrit 31.8 % (36.0-46.0); Hemoglobin 10.5 g/dL (12.2-16.2); Lymphocytes # (auto) 3.5 10 ^3/uL (0.4-5.4); Lymphocytes % (auto) 41.2 % (10.0-50.0); Mean Corpuscular Hemoglobin 28.6 pg (28.0-32.0); Mean Corpuscular Hgb Conc. 33.1 g/dL (32.0-36.0); Mean Corpuscular Volume 86.2 fL (80.0-100.0); Monocytes % (auto) 11.7 % (0.0-12.0); Neutrophils # (auto) 3.5 10 ^3/uL (1.6-8.6); Neutrophils % (auto) 41.2 % (37.0-80.0); Platelet Count (auto) 199 10^3/uL (140-450); Red Blood Cells 3.68 10^6/uL (4.0-5.20); Red Cell Distribution Width 15.2 % (11.8-14.3); White Blood Cell 8.4 10^3/uL (4.4-10.8)
[2020-03-08 05:46] LABS: INR 1.11 (0.9-1.15); Partial Thromboplastin Time 28.6 sec (23.64-32.05)
[2020-03-08 05:47] LABS: Calcium 7.8 mg/dL (8.5-10.1); Potassium 3.7 mmol/L (3.5-5.1)
[2020-03-08 05:49] LABS: BUN/Creatinine Ratio 26.2
[2020-03-08] MEDS: InsuLIN REG 1unit/0.01ml Soln (100units/ml) SC SCH ×4 (06:26→22:11)
[2020-03-08] MEDS: FUROSEMIDE 100 MG/10ML VIAL IV SCH ×2 (06:26→18:35)
[2020-03-08] MEDS: ACCU-CHEK COMFORT CURVE STRIP VI SCH ×4 (06:27→22:10)
[2020-03-08] MEDS: Glucerna Carbsteady SHAKE Vanilla 8oz PO SCH ×3 (08:00→18:35)
[2020-03-08] MEDS ORDERED: LIDOCAINE 2%HCL (LOCAL ANESTH.) INJ 20ML MDV ONE (08:55)
[2020-03-08] MEDS ORDERED: IODIXANOL 320MG/ML 100ML BTL IV ONE ×2 (08:55→09:57)
[2020-03-08 09:00] VITALS: BP 143/80
[2020-03-08] MEDS ORDERED: fentaNYL CITRATE 100 MCG/2 ML VL ONE (09:22)
[2020-03-08] MEDS ORDERED: MIDAZOLAM HCL 1MG/1ML-2 ML VIAL ONE (09:22)
[2020-03-08] MEDS ORDERED: ANGIOMAX 250 MG VIAL IV ONE (09:55)
[2020-03-08] MEDS ORDERED: SODIUM CHL 0.9% 0 ML ONE (09:56)
[2020-03-08] MEDS: DOCUSATE SOD 100 MG CAP PO SCH (10:00)
[2020-03-08] MEDS: METOPROLOL TARTRATE 25 MG TAB PO SCH ×2 (10:00→21:49)
[2020-03-08] MEDS: ISOSORBIDE MONONITRATE ER 60 MG TAB PO SCH (10:00)
[2020-03-08] MEDS: ASPirin-EC 81 mg tab PO SCH (10:00)
[2020-03-08] MEDS: CLOPIDOGREL BISULFATE 75 MG TAB PO SCH (10:00)
[2020-03-08] MEDS: amLODIPine BESYLATE 5 MG TAB PO SCH (10:00)
[2020-03-08] MEDS: SODIUM CHLORIDE 0.9% 500 ML IV SCH ×2 (10:01→20:01)
[2020-03-08] MEDS ORDERED: ONDANSETRON HCL 4 MG/2 ML VIAL ONE ×2 (10:26→11:29)
[2020-03-08] MEDS ORDERED: SODIUM CHLORIDE 0.9% 1,000 ML IV SCH (11:00)
[2020-03-08] MEDS ORDERED: ONDANSETRON HCL 4 MG/2 ML VIAL IV ONE (11:45)
[2020-03-08 13:00] VITALS: BP 134/53
[2020-03-08 16:53] VITALS: BP 141/54
[2020-03-08] MEDS: ATORVASTATIN 20 MG TAB PO SCH (21:49)
[2020-03-09 05:45] LABS: Basophils # (auto) 0.1 10 ^3/uL (0-0.2); Eosinophils # (auto) 0.2 10 ^3/uL (0-0.8); Eosinophils % (auto) 2.6 % (0.0-7.0); Hematocrit 32.3 % (36.0-46.0); Hemoglobin 10.9 g/dL (12.2-16.2); Lymphocytes # (auto) 1.4 10 ^3/uL (0.4-5.4); Lymphocytes % (auto) 16.8 % (10.0-50.0); Mean Corpuscular Hemoglobin 29.2 pg (28.0-32.0); Mean Corpuscular Hgb Conc. 33.7 g/dL (32.0-36.0); Mean Corpuscular Volume 86.7 fL (80.0-100.0); Monocytes # (auto) 1.1 10 ^3/uL (0-1.3); Monocytes % (auto) 12.4 % (0.0-12.0); Neutrophils # (auto) 5.8 10 ^3/uL (1.6-8.6); Neutrophils % (auto) 67.2 % (37.0-80.0); Platelet Count (auto) 201 10^3/uL (140-450); Red Blood Cells 3.72 10^6/uL (4.0-5.20); White Blood Cell 8.6 10^3/uL (4.4-10.8)
[2020-03-09 05:47] VITALS: BP 126/54
[2020-03-09] MEDS: FUROSEMIDE 100 MG/10ML VIAL IV SCH (05:59)
[2020-03-09] MEDS: SODIUM CHLORIDE 0.9% 500 ML IV SCH (06:01)
[2020-03-09 06:10] LABS: BUN/Creatinine Ratio 25.8; Calcium 8.3 mg/dL (8.5-10.1)
[2020-03-09] MEDS: InsuLIN REG 1unit/0.01ml Soln (100units/ml) SC SCH ×2 (07:00→12:23)
[2020-03-09] MEDS: ACCU-CHEK COMFORT CURVE STRIP VI SCH ×2 (07:22→12:21)
[2020-03-09] MEDS: Glucerna Carbsteady SHAKE Vanilla 8oz PO SCH ×2 (08:15→12:21)
[2020-03-09 09:00] VITALS: BP 155/70
[2020-03-09] MEDS: DOCUSATE SOD 100 MG CAP PO SCH (09:24)
[2020-03-09] MEDS: METOPROLOL TARTRATE 25 MG TAB PO SCH (09:24)
[2020-03-09] MEDS: CLOPIDOGREL BISULFATE 75 MG TAB PO SCH (09:24)
[2020-03-09] MEDS: ISOSORBIDE MONONITRATE ER 60 MG TAB PO SCH (09:24)
[2020-03-09] MEDS: amLODIPine BESYLATE 5 MG TAB PO SCH (09:25)
[2020-03-09] MEDS: ASPirin-EC 81 mg tab PO SCH (09:25)
[2020-03-09 12:29] VITALS: BP 146/73
== END 2020-03-09 15:10 | disposition hospice, home (50) | DRG 280 ==
LOC: EDBD 00:22 → ER 00:24 → TELE 00:25 → TELE-WESTW 07:57
PROVIDERS: ADMIT Hospitalist; ATTEND Internal Medicine
PROC: 4A023N7 Measurement of Cardiac Sampling and Pressure, Left Heart, Percutaneous Approach (ICD-10-PCS; principal; 2020-03-08)
PROC: B211YZZ Fluoroscopy of Multiple Coronary Arteries using Other Contrast (ICD-10-PCS; 2020-03-08)
DX: I21.4 Non-ST elevation (NSTEMI) myocardial infarction (principal); I50.43 Acute on chronic combined systolic (congestive) and diastolic (congestive) heart failure; N17.0 Acute kidney failure with tubular necrosis; I13.0 Hypertensive heart and chronic kidney disease with heart failure and stage 1 through stage 4 chronic kidney disease, or unspecified chronic kidney disease; E44.0 Moderate protein-calorie malnutrition; Z68.1 Body mass index [BMI] 19.9 or less, adult; I16.0 Hypertensive urgency; I44.7 Left bundle-branch block, unspecified; E11.51 Type 2 diabetes mellitus with diabetic peripheral angiopathy without gangrene; D63.8 Anemia in other chronic diseases classified elsewhere; E11.22 Type 2 diabetes mellitus with diabetic chronic kidney disease; I25.10 Atherosclerotic heart disease of native coronary artery without angina pectoris; N18.3 Chronic kidney disease, stage 3 (moderate); Z51.5 Encounter for palliative care; E78.5 Hyperlipidemia, unspecified; Z82.49 Family history of ischemic heart disease and other diseases of the circulatory system; Z83.3 Family history of diabetes mellitus; Z79.84 Long term (current) use of oral hypoglycemic drugs; Z86.73 Personal history of transient ischemic attack (TIA), and cerebral infarction without residual deficits; Z89.511 Acquired absence of right leg below knee; Z89.611 Acquired absence of right leg above knee; Z95.2 Presence of prosthetic heart valve
CPT/HCPCS: 36415; 71045; 78452; 80048; 80053; 80061; 82962; 83036; 83735; 83880; 84443; 84484; 85025; 85610; 85730; 86850; 86900; 86901; 93005; 93017; 93306; 93458; 93886; 93926; 96361; 96374; 96375; 96376; 99152; 99153; G0378; J0153; J1815; J2250; J2405; Q9967